=== PATIENT | male | born 1995 | race African-American/Black ===

== ENCOUNTER 2016-12-20 19:50 | Emergency (ER) | payer MEDICAID ==
[~2016-12-20] VITALS: Ht 177.8 cm; Wt 88.5 kg
[2016-12-20 20:13] VITALS: BP 140/100
== END 2016-12-21 01:04 | disposition left against medical advice (07) ==
LOC: ER 22:03
DX: R53.1 Weakness (principal); Z53.21 Procedure and treatment not carried out due to patient leaving prior to being seen by health care provider